=== PATIENT | male | born 1945 | race Caucasian/White ===

== ENCOUNTER 2017-03-18 09:07 | Emergency (ER) | payer MEDICARE, OTHER ==
[~2017-03-18 09:07] MED LIST: DIOV40TA PO; GUAI100S6 PO; HYZA100T2 PO
[2017-03-18 09:13] VITALS: BP 173/102; PULSE 66; RESP 18; TEMP 97.4; O2SAT 99
[2017-03-18] MEDS ORDERED: AMLO10 PO (09:23)
[2017-03-18] MEDS ORDERED: DIOV320T6 PO (09:23)
[2017-03-18] MEDS ORDERED: ASPI81CH7 CHEW (09:23)
[2017-03-18 09:29] LABS: AUTOMATED NEUTROPHIL # 3.2 TH/MM3 (1.8-7.7); BASOPHIL % 0.8 % (0.0-2.0); EOSINOPHIL # 0.4 TH/MM3 (0-0.4); HEMATOCRIT 48.2 % (39.0-51.0); HEMOGLOBIN 15.9 GM/DL (13.0-17.0); LYMPH % 29.4 % (9.0-44.0); LYMPHOCYTE # 1.7 TH/MM3 (1.0-4.8); MEAN CELL VOLUME 93.3 FL (80.0-100.0); MEAN CORPUSCULAR HEMOGLOBIN 30.9 PG (27.0-34.0); MEAN CORPUSCULAR HGB CONC 33.1 % (32.0-36.0); MEAN PLATELET VOLUME 9.2 FL (7.0-11.0); MONO % 8.5 % (0.0-8.0); MONOCYTE # 0.5 TH/MM3 (0-0.9); NEUT % 54.3 % (16.0-70.0); PLATELET COUNT 168 TH/MM3 (150-450); RED BLOOD COUNT 5.17 MIL/MM3 (4.50-5.90); WHITE BLOOD COUNT 5.8 TH/MM3 (4.0-11.0)
--- NOTE | 2017-03-18 09:44 | PD ---
HPI Chief Complaint: Chest Pain Time Seen by Provider: 09:41 Travel History International Travel<30 days: No Contact w/Intl Traveler<30days: No Traveled to known affect area: No History of Present Illness HPI 71-year-old male complains of chest pain. Patient states that the chest pain started after he sneezed last night. Patient states that the pain started sharp pain now became dull aching pain substernally. Patient denies any pain radiation. Patient denies palpitation nausea diaphoresis. Patient has history hypertension. Patient denies history of diabetes or hyperlipidemia. Patient is a nonsmoker. Patient has family history of heart disease. PFSH Past Medical History Cancer: Yes (PROSTATE) Diabetes: No Diminished Hearing: No Hypertension: Yes Influenza Vaccination: Yes Past Surgical History Abdominal Surgery: Yes (VOLVULUS) Appendectomy: Yes Genitourinary Surgery: Yes (PROSTATE SURGERY DUE TO CA) Other Surgery: Yes (INGUINAL HERNIA, PILONIDAL CYST) Social History Alcohol Use: Yes (WINE DAILY) Tobacco Use: No Substance Use: No Allergies-Medications (Allergen,Severity, Reaction): Coded Allergies: codeine (Unverified Allergy, Severe, Hives, 03/18/17) Sulfa (Sulfonamide Antibiotics) (Unverified Allergy, Intermediate, HIVES, 03/18/17) Reported Meds & Prescriptions Reported Meds & Active Scripts Active Reported Aspirin Children's (Aspirin) 81 Mg Chew 81 Mg CHEW DAILY Norvasc (Amlodipine Besylate) 10 Mg Tab 10 Mg PO DAILY Diovan Hct (Valsartan-Hydrochlorothiazide) 320-25 Mg Tab 1 Tab PO DAILY Review of Systems General / Constitutional: No: Fever Eyes: No: Visual changes HENT: No: Headaches Cardiovascular: Positive: Chest Pain or Discomfort Respiratory: No: Shortness of Breath Gastrointestinal: No: Abdominal Pain Genitourinary: No: Dysuria Musculoskeletal: No: Pain Skin: No Rash Neurologic: No: Weakness Psychiatric: No: Depression Endocrine: No: Polydipsia Hematologic/Lymphatic: No: Easy Bruising Physical Exam Narrative GENERAL: Well-nourished, well-developed patient. SKIN: Focused skin assessment warm/dry. HEAD: Normocephalic. EYES: No scleral icterus. No injection or drainage. NECK: Supple, trachea midline. No JVD or lymphadenopathy. CARDIOVASCULAR: Regular rate and rhythm without murmurs, gallops, or rubs. RESPIRATORY: Breath sounds equal bilaterally. No accessory muscle use. GASTROINTESTINAL: Abdomen soft, non-tender, nondistended. MUSCULOSKELETAL: No cyanosis, or edema. BACK: Nontender without obvious deformity. No CVA tenderness. Neurologic exam normal. Data Data Last Documented VS Vital Signs Date Time Temp Pulse Resp B/P (MAP) Pulse Ox O2 Delivery O2 Flow Rate FiO2 03/18/17 10:00 70 03/18/17 10:00 98 Room Air 03/18/17 10:00 16 154/96 (115) 03/18/17 09:13 97.4 Orders Orders Electrocardiogram (03/18/17:18) Complete Blood Count With Diff (03/18/17:) Basic Metabolic Panel (Bmp) (03/18/17:18) Ckmb (Isoenzyme) Profile (03/18/17:18) Troponin I (03/18/17:) Chest, Single Ap (03/18/17:18) Iv Access Insert/Monitor (03/18/17:18) Ecg Monitoring (03/18/17:18) Oxygen Administration (03/18/17:18) Oximetry (03/18/17:18) I-Stat Profile (03/18/17:20) CKMB (03/18/17:20) CKMB% (03/18/17:20) Labs Laboratory Tests Test 03/18/17:20 White Blood Count 5.8 TH/MM3 Red Blood Count 5.17 MIL/MM3 Hemoglobin 15.9 GM/DL Bedside Hemoglobin G/DL Hematocrit 48.2 % Bedside Hematocrit % Mean Corpuscular Volume 93.3 FL Mean Corpuscular Hemoglobin 30.9 PG Mean Corpuscular Hemoglobin Concent 33.1 % Red Cell Distribution Width 12.0 % Platelet Count 168 TH/MM3 Mean Platelet Volume 9.2 FL Neutrophils (%) (Auto) 54.3 % Lymphocytes (%) (Auto) 29.4 % Monocytes (%) (Auto) 8.5 % Eosinophils (%) (Auto) 7.0 % Basophils (%) (Auto) 0.8 % Neutrophils # (Auto) 3.2 TH/MM3 Lymphocytes # (Auto) 1.7 TH/MM3 Monocytes # (Auto) 0.5 TH/MM3 Eosinophils # (Auto) 0.4 TH/MM3 Basophils # (Auto) 0.0 TH/MM3 CBC Comment DIFF FINAL Differential Comment Bedside Sodium 140 MMOL/L Blood Urea Nitrogen 17 MG/DL Creatinine 0.95 MG/DL Random Glucose 99 MG/DL Calcium Level 9.0 MG/DL Sodium Level 137 MEQ/L Potassium Level 3.7 MEQ/L Chloride Level 101 MEQ/L Carbon Dioxide Level 26.1 MEQ/L Bedside Potassium 3.9 MMOL/L Bedside Chloride 102 MMOL/L Anion Gap 10 MEQ/L Bedside Blood Urea Nitrogen 18 MG/DL Bedside Creatinine 1.0 MG/DL Estimat Glomerular Filtration Rate 78 ML/MIN Bedside Glucose 102 MG/DL Total Creatine Kinase 153 U/L Creatine Kinase MB 2.6 NG/ML Troponin I 0.03 NG/ML MDM Medical Decision Making Medical Screen Exam Complete: Yes Emergency Medical Condition: Yes Interpretation(s) Last Impressions Chest X-Ray 03/18/17917 Signed Impressions: Service Date/Time: Saturday, March 18, 2017 09:28 - CONCLUSION: No acute disease. Sandra Zhou MD 10:51 AM. CBC within normal limit. CMP within normal limit. Cardiac enzymes are normal. Differential Diagnosis Differential diagnosis including musculoskeletal, angina, IN, PE, pneumothorax. Narrative Course 71-year-old with chest pain started after he Sneezed last night. EKG x-ray cardiac enzymes are normal. Reexamination patient had mostly localized right- sided chest pain around the sternal area. Worse with movement. Very atypical. Most likely musculoskeletal. Toradol 30 mg IV given. Diagnosis Primary Impression: Atypical chest pain Patient Instructions: General Instructions Med/Other Pt SpecificInfo: Prescription(s) given Scripts Ibuprofen (Ibuprofen) 600 Mg Tab 600 MG PO TID for Pain, #30 TAB 0 Refills Prov: Anton Adams MD 03/18/17 Disposition: 01 DISCHARGE HOME Condition: Stable Anton Adams MD Mar 18, 2017 09:44
--- NOTE | 2017-03-18 09:44 | RADRPT ---
EXAM DATE/TIME: 03/18/2017 09:28 [facility] COMPARISON: No previous studies available for comparison. INDICATIONS : Chest pain MEDICAL HISTORY : None. SURGICAL HISTORY : None. ENCOUNTER: Initial ACUITY: 1 day PAIN SCORE: 4/10 LOCATION: Bilateral chest FINDINGS: A single view of the chest demonstrates the lungs to be symmetrically aerated without evidence of mas s, infiltrate or effusion. The cardiomediastinal contours are unremarkable. Osseous structures are intact. CONCLUSION: No acute disease. Sandra Zhou MD on March 18, 2017 at 9:41 Board Certified Radiologist. This report was verified electronically.
[2017-03-18 10:00] VITALS: BP 154/96; PULSE 70; RESP 16; O2SAT 98
[2017-03-18 10:18] LABS: CHLORIDE 101 MEQ/L (98-107); SODIUM (NA) 137 MEQ/L (136-145)
[2017-03-18 10:21] LABS: BICARBONATE 26.1 MEQ/L (21.0-32.0); BLOOD UREA NITROGEN 17 MG/DL (7-18); GLUCOSE,RANDOM 99 MG/DL (74-106)
[2017-03-18 10:24] LABS: CREATININE 0.95 MG/DL (0.60-1.30); GLOMERULAR FILTRATION RATE 78 ML/MIN (>89)
[2017-03-18 10:29] LABS: TROPONIN I 0.03 NG/ML (0.02-0.05)
[2017-03-18] MEDS ORDERED: IBUP-232 PO (10:55)
[2017-03-18] MEDS ORDERED: KETOROLAC TROMETHAMINE 30 MG/ML (IVP) VIAL IV PUSH ONE (11:00)
--- NOTE | 2017-03-19 00:50 | EKG ---
Date Performed: 03/18/2017 Time Performed: 09:45:17 PTAGE: 71 years EKG: Sinus rhythm BORDERLINE LEFT AXIS DEVIATION BORDERLINE ECG INTERPRETATION BASED ON A DEFAULT AGE OF 40 YEARS NO PREVIOUS TRACING DOCTOR: Jorge Montano Interpretating Date/Time 03/19/2017 00:48:38
== END 2017-03-18 11:05 | disposition home or self-care (01) ==
LOC: PHED 09:07
DX: R07.89 Other chest pain (principal); I10 Essential (primary) hypertension; Z85.46 Personal history of malignant neoplasm of prostate; Z88.5 Allergy status to narcotic agent; Z88.2 Allergy status to sulfonamides
CPT/HCPCS: 71045; 80048; 82550; 82552; 84484; 85025; 93005; 96374; 99285; J1885